=== PATIENT | male | born 2000 | race Caucasian/White ===

== ENCOUNTER 2023-12-22 09:51 | Emergency (ER) | payer BC, SELFPAY ==
[2023-12-22 10:13] VITALS: BP 119/88
--- NOTE | 2023-12-22 11:08 | ED.GENMED ---
History of Present Illness
<Leonie Prajapati PA-C - Last Filed: 12/22/23 14:50>
General
Chief Complaint: Chest Pain
Source: patient
Exam Limitations: none
Time Seen by Provider: 12/22/23 11:07
Nursing documentation reviewed up to this point in time: agreed with
Travel History
Have you had any contact with someone who has COVID-19?: No
Do you have any symptoms of coronavirus? Fever > 100 degrees, chills, cough, shortness of breath, sore throat, loss of taste or smell, muscle aches, or headache?: No
History of Present Illness
History of Present Illness:
This is a 23 y/o male with PMH of asthma presenting to the emergency department today with concerns of intermittent shortness of breath and intermittent chest pain for the past 2 weeks. Patient states that he first noticed it when he took a deep
breath. Patient states that the pain will last for a few seconds and than resolve. He feels it on the left side of his chest. Patient states that he also has intermittent shortness of breath with this. Patient states that he will have a few episodes
of this per day. Patient currently has no pain. Patient does lift weights multiple times per week. Patient denies recent long distance travel, fevers or chills, cold/URI symptoms, recent hospitalizations. Patient states that he has family history of
a heart condition but he is unsure what kind.
Review of Systems
<Leonie Prajapati PA-C - Last Filed: 12/22/23 14:50>
Review of Systems
All Other Systems: ROS reviewed and negative except as documented in HPI and ROS
Phy Exam
<Leonie Prajapati PA-C - Last Filed: 12/22/23 14:50>
Physical Exam
Physical Exam:
Vitals: Vital signs are stable
General: Patient is well appearing and in no acute distress
Skin: Warm and dry, no rashes or lesions
Head: Normocephalic, atraumatic
Cardiac: Regular rate and rhythm, no murmurs, rubs, or gallops. No tenderness to palpation of the external chest wall.
Peripheral Vascular: No lower extremity swelling.
Pulm: Normal respiratory effort. Some mild wheezes heard in upper lung jasso b/l.
Musculoskeletal: Good muscle tone and bulk
Neuro: CN II-XII intact. No focal neurologic deficits.
Scores
<Leonie Prajapati PA-C - Last Filed: 12/22/23 14:50>
Heart Score for Chest Pain Patients
STEMI patient?: No
History: Slightly or Non-Suspicious
ECG: Normal
Age: </= 45 years
Risk Factors: No Risk Factors
Troponin: </= Normal Limit
Heart Score for Chest Pain Patients: 0
Heart Score Risk: 2.5% MACE over next 6 weeks
Course
<Leonie Prajapati PA-C - Last Filed: 12/22/23 14:50>
Orders/Labs/Results
Orders:
Orders
12/22/23 09:55
Electrocardiogram (*1) Urgent
Reason for Study: Chest Pain
EKG- Treatment ONCE
12/22/23 11:01
CR Chest - 2 Views Urgent
Comment:
Reason For Exam: chest pain
12/22/23 11:18
Complete Blood Count/With Diff Urgent
Comprehensive Metabolic Panel Urgent
Troponin I Urgent
12/22/23 11:21
D-Dimer Urgent
Abnormal Lab Results
12/22/23
11:18
MCH 31.6 H pg
(27.0-31.0)
Monocytes % 9.6 H %
(1.7-9.3)
Potassium 5.6 H mmol/L
(3.5-5.1)
AST 78 H U/L
(17-59)
ALT 81 H U/L
(0-50)
12/22/23 11:18
12/22/23 11:18
Vital Signs
Initial and Last Documented VS:
Initial Vital Signs
Temp Pulse Resp BP Pulse Ox
98.0 F 82 20 119/88 97
12/22/23 10:13 12/22/23 10:13 12/22/23 10:13 12/22/23 10:13 12/22/23 10:13
Last Documented Vital Signs
Temp Pulse Resp BP Pulse Ox
98.0 F 81 17 126/86 97
12/22/23 10:13 12/22/23 12:05 12/22/23 12:05 12/22/23 12:05 12/22/23 12:05
<Shaji Parham, DO - Last Filed: 12/22/23 11:39>
Orders/Labs/Results
Orders:
Orders
12/22/23 09:55
Electrocardiogram (*1) Urgent
Reason for Study: Chest Pain
EKG- Treatment ONCE
12/22/23 11:01
CR Chest - 2 Views Urgent
Comment:
Reason For Exam: chest pain
12/22/23 11:18
Complete Blood Count/With Diff Urgent
Comprehensive Metabolic Panel Urgent
Troponin I Urgent
12/22/23 11:21
D-Dimer Urgent
Abnormal Lab Results
12/22/23
11:18
MCH 31.6 H pg
(27.0-31.0)
Monocytes % 9.6 H %
(1.7-9.3)
Potassium 5.6 H mmol/L
(3.5-5.1)
AST 78 H U/L
(17-59)
ALT 81 H U/L
(0-50)
12/22/23 11:18
12/22/23 11:18
Vital Signs
Initial and Last Documented VS:
Initial Vital Signs
Temp Pulse Resp BP Pulse Ox
98.0 F 82 20 119/88 97
12/22/23 10:13 12/22/23 10:13 12/22/23 10:13 12/22/23 10:13 12/22/23 10:13
Last Documented Vital Signs
Temp Pulse Resp BP Pulse Ox
98.0 F 81 17 126/86 97
12/22/23 10:13 12/22/23 12:05 12/22/23 12:05 12/22/23 12:05 12/22/23 12:05
<Leonie Prajapati PA-C - Last Filed: 12/22/23 14:50>
MDM/Problems Addressed
Differential Diagnosis Includes:
ddx include ACS, PE, URI, costochondritis, asthma exacerbation, musculoskeletal sprain/strain
MDM/Problems Addressed:
chest pain
Chronic conditions affecting care: Asthma
<Leonie Prajapati PA-C - Last Filed: 12/22/23 14:50>
*Pulse Oximetry
Patient hypoxic: no
*EKG
Interpreted by ED Provider?: Yes
EKG Intrepretation Date: 12/22/23
Interpretation: abnormal
Comparison EKG: no comparison EKG present
Heart Rate: 80
Rate: normal
Rhythm: sinus arrhythmia
[place]: normal axis
Interval: normal interval, normal QT interval and normal CT interval
QRS Pattern: normal QRS
Ischemia: no ischemia
*Critical Care Note
Total Time (30-74mins, 75-104mins- exclusive of procedures): Not Applicable
Data Reviewed
Review of Other/Old Records Reveals: Records ( no previous records in [facility] to review ) and Discharge Summary (no discharge summaries in [facility] to review )
Source: patient and records
Prescriptions/Medications Considered But Not Given:
considered duoneb treatment however patient is pain free and not in any respiratory distress at this time
<Leonie Prajapati PA-C - Last Filed: 12/22/23 14:50>
Patient Management
Escalation/DeEscalation of care consider admission/obs:
This is a 23 y/o male with PMH of asthma presenting to the emergency department today with concerns of intermittent shortness of breath and intermittent chest pain for the past 2 weeks. It is pleuritic in nature. Patient does have a history of
asthma exacerbated by URIs and exercise. Patient states that he grew out of it and has not had to use an inhaler since middle school. Here in the emergency department, his EKG demonstrates normal sinus rhythm with no ischemic changes, his chest
x-ray is normal, and his d-dimer and troponin are negative. On physical examination, I did her some scattered wheezes. I advised patient that this is likely costochondritis however considering hx of asthma and wheezing heard, I advised patient to
try using an albuterol inhaler should he get chest tightness again.
<Leonie Prajapati PA-C - Last Filed: 12/22/23 14:50>
Update Note
Update Note:
After patient was discharged, I realized that I did not update patient on his elevated potassium of 5.6. I called patient to notify him and described how no intervention is needed at this time and that he should have his potassium rechecked with his
PCP in one week. Patient in agreement with plan.
ED Attending Note
<Leonie Prajapati PA-C - Last Filed: 12/22/23 14:50>
-
Portions of this chart may have been created with voice recognition software.� Occasional wrong word or��sound alike� substitutions may have occurred due to the inherent limitations of voice recognition software.
<Shaji Parham DO - Last Filed: 12/22/23 11:39>
ED Attending Note
Patient seen and examined by attending physician: Yes
I performed the substantive portion of visit, reviewed & personally made and approve the management plan that is documented in note by myself or CARMEN.: Yes
ED Attending Note:
I have seen and evaluated the patient with a [id number] encounter. I have spoken to the advance practicer provider and involved in the medical history, the physical exam, medical decision making.
Evaluation and management service: agree unless noted differently below.
Results interpretation: agree unless noted differently below.
Focused HPI: 23-year-old male presenting for evaluation of intermittent left-sided chest pain. Patient was worried because pain got worse with deep inspiration. He denies cough or shortness of breath
Physical exam: Well-appearing nontoxic. Chest nontender. Faint expiratory wheeze
Medical Decision Making: Given his ongoing symptoms, will obtain EKG and chest x-ray. Will obtain D-dimer. If workup negative, will consider inhalers
Discharge Plan
Departure
Patient Disposition: Home (Routine Discharge)
Date of Disposition: 12/22/23
Time of Disposition: 12:46
Patient with high blood pressure during this ER visit?: Yes
Condition: Good
Discharge Problem:
Chest pain, non-cardiac
Instructions: Asthma, Adult (DC), Chest Pain That Is Not Caused by the Heart (DC), BLOOD PRESSURE
Prescriptions:
New
albuterol sulfate [ProAir HFA] 90 mcg/actuation HFA aerosol inhaler
1 puff inhalation Q4HPRN PRN (Reason: shortness of breath) Qty: 6.7 0RF
Referrals:
NONE,* [Family Provider] -
Activity Restrictions/Additional Instructions:
Please follow up with you primary care provider.
As discussed, if you experience the chest tightness again, I recommend trying your albuterol inhaler. You can do 2-4 inhalations every 20 minutes for 3 doses; if good response, you can lengthen interval to every 4-6 hours.
Please return emergency department if experience any acute worsening of your symptoms, shortness of breath, trouble breathing, or other concerning signs or symptoms.
Interventions
Interventions:
*Risk Screen - Suicide Last Done: 12/22/23 11:23
*General Assessment Last Done: 12/22/23 11:23
*Neglect/Abuse Screening Last Done: 12/22/23 11:23
*Nursing Disposition Last Done: 12/22/23 13:08
ED- Cardiac Assessment Last Done: 12/22/23 11:23
Discharge Date and Time
Discharge Date/Time: 12/22/23 13:09
Print Language: GREEK
[2023-12-22 11:38] LABS: % Basophils 0.7 % (0-2); % Eosinophils 4.2 % (0-6); % Immature Granulocytes 0.3 % (0-0.5); % Lymphocytes 32.2 % (20.5-51.1); % Monocytes 9.6 % (1.7-9.3); Absolute Basophils 0.1 10^3/uL (0-0.2); Absolute Eosinophils 0.3 10^3/uL (0-0.7); Absolute Lymphocytes 2.2 10^3/uL (1.2-3.4); Absolute Monocytes 0.6 10^3/uL (0.1-0.6); Absolute Neutrophils 3.6 10^3/uL (1.4-6.5); Hematocrit 47.5 % (39.0-52.0); Hemoglobin 16.8 g/dL (13.0-18.0); Mean Corp Hgb Conc. 35.4 g/dL (33.0-37.0); Mean Corpuscular Hgb 31.6 pg (27.0-31.0); Mean Corpuscular Volume 89.3 fL (80.0-94.0); Mean Platelet Volume 9.9 fL (7.4-10.4); Nucleated Red Blood Cells % 0 % (-); Platelet Count 210 10^3/uL (130-400); Red Blood Cell Count 5.32 10^6/uL (4.70-6.10); White Blood Cell Count 6.7 10^3/uL (4.8-10.8)
[2023-12-22 11:55] LABS: ALT (SGPT) 81 U/L (0-50); AST (SGOT) 78 U/L (17-59); Albumin 4.8 g/dl (3.5-5.0); Alkaline Phosphatase 65 U/L (38-126); Blood Urea Nitrogen 15 mg/dl (9-20); Calcium 9.9 mg/dl (8.4-10.2); Carbon Dioxide 26 mmol/L (22-30); Chloride 104 mmol/L (98-107); Glucose 83 mg/dl (70-99); Potassium 5.6 mmol/L (3.5-5.1); Sodium 136 mmol/L (135-145); Total Bilirubin 0.7 mg/dl (0.2-1.3); Total Protein 7.6 g/dl (6.3-8.2); eGFR > 60.00
[2023-12-22 12:05] VITALS: BP 126/86
[2023-12-22 12:15] LABS: Troponin I < 0.012 ng/ml
[2023-12-22 12:42] LABS: D-Dimer < 0.27 ug/mlFEU (0.00-0.50)
== END 2023-12-22 13:09 | disposition home or self-care (01) ==
LOC: EMR 09:51
PROVIDERS: Physician Assistant; EMERGENCY PHYSICIAN Student in an Organized Health Care Education/Training Program
DX: R07.89 Other chest pain (principal); R06.02 Shortness of breath; R06.2 Wheezing; R03.0 Elevated blood-pressure reading, without diagnosis of hypertension; J45.909 Unspecified asthma, uncomplicated; Z88.0 Allergy status to penicillin; Z91.048 Other nonmedicinal substance allergy status
CPT/HCPCS: 99283; 71046; 80053; 84484; 85025; 85379; 93005